=== PATIENT | female | born 1945 | race Caucasian/White ===

== ENCOUNTER → 2022-06-18 | Outpatient (CLI) | payer MEDICARE, MEDICAID, SELFPAY ==
--- NOTE | 2022-06-18 13:00 | RAD_ITS ---
EXAM: XR LUMBOSACRAL SPINE, 2 OR 3 VIEWS CLINICAL INDICATION: RADICULOPATHY TECHNIQUE: Frontal and lateral views of the lumbar spine and sacrum. This report was created using [employer] report [employer] technology. COMPARISON: None. FINDINGS: VERTEBRAE: Unremarkable. Preserved vertebral body height. No fracture. No spondylolisthesis. Preservation of the normal lumbar lordosis. No significant facet arthropathy. DISC SPACES: There are degenerative changes with disc space narrowing at L1-2. There is apparent bony neural foraminal narrowing at L3-4, L4-5 and L5-S1. GASTROINTESTINAL TRACT: There is contrast within the colon. Included bowel gas pattern is non-obstructive. TUBES, LINES AND DEVICES: Right ureteral stent is in place. OTHER FINDINGS: There are bilateral hip prostheses. RAD/Lumbar Spine 2 or 3 Views IMPRESSION: Degenerative changes with disc space narrowing at the upper lumbar spine and bony neural foraminal narrowing the lower lumbar spine. There are no acute osseous abnormalities. Electronically Signed: Viral Rodriguez MD at 17:35 EDT ,
== END | disposition home or self-care (01) ==
PROVIDERS: PCP Family Medicine; Referring Provider Anesthesiology Pain Medicine; Visit Provider Anesthesiology Pain Medicine
DX: M51.36 Other intervertebral disc degeneration, lumbar region (principal); M51.37 Other intervertebral disc degeneration, lumbosacral region
CPT/HCPCS: 72100